=== PATIENT | male | born 1995 | race Caucasian/White ===

== ENCOUNTER → 2017-12-09 | Outpatient (CLI) | payer OTHER ==
[2017-12-09 09:31] LABS: BASOPHILS # (AUTO) 0.02 x10^3/uL (0-0.1); BASOPHILS % (AUTO) 1 % (0-1); EOSINOPHILS # (AUTO) 0.36 x10^3/uL (0-0.4); EOSINOPHILS % (AUTO) 7 % (1-7); LYMPHOCYTES # (AUTO) 1.74 x10^3/uL (1-3.4); LYMPHOCYTES % (AUTO) 34 % (22-44); MD NO; MEAN CORPUSCULAR HEMOGLOBIN 28.5 pg (27.5-34.5); MEAN CORPUSCULAR HGB CONC 33.4 g/dL (33.2-36.2); MEAN CORPUSCULAR VOLUME 85.3 fL (81-97); MEAN PLATELET VOLUME 8.1 fL (7.4-10.4); MONOCYTES % (AUTO) 10 % (2-9); NEUTROPHILS # (AUTO) 2.53 x10^3/uL (1.8-6.8); NEUTROPHILS % (AUTO) 49 % (42-75); PLATELET COUNT 230 x10^3/uL (130-400); RED BLOOD COUNT 5.39 x10^6/uL (4.38-5.82); RED CELL DISTRIBUTION WIDTH 12.8 % (9.4-14.8)
== END | disposition home or self-care (01) ==
LOC: LAB 08:41
PROVIDERS: ATTEND Registered Nurse
DX: J45.909 Unspecified asthma, uncomplicated (principal)
CPT/HCPCS: 36415; 82103; 82104; 82784; 82785; 85025; 86003; 86225; 86235

== ENCOUNTER → 2018-04-13 | Outpatient (CLI) | payer OTHER ==
[~2018-04-13] MED LIST: ALBU8.5H8 INH; FLUT100B IH
== END | disposition home or self-care (01) ==
LOC: STAR 11:32
PROVIDERS: ATTEND Internal Medicine
DX: Z02.9 Encounter for administrative examinations, unspecified (principal)

== ENCOUNTER 2018-05-12 08:00 | Day surgery (SDC) | payer OTHER ==
[~2018-05-12] VITALS: Ht 193 cm; Wt 93.2 kg
[2018-05-12] MEDS: ALBUTEROL SULFATE 2.5 MG/3 ML NPPB PRN ×2 (07:30→13:37)
[~2018-05-12 08:00] MED LIST changes: +LIDOCAINE 4% TOPICAL SOLUTION 50 ML ONE
[2018-05-12 08:38] VITALS: BP 122/77
[2018-05-12] MEDS ORDERED: prednisone PO (08:44)
[2018-05-12] MEDS ORDERED: advair INH (08:44)
[2018-05-12] MEDS ORDERED: SODIUM CHLORIDE 0.9% 1,000 ML IV SCH (09:00)
[2018-05-12] MEDS ORDERED: MIDAZOLAM 1 MG/ML, 5ML ONE ×2 (09:02)
[2018-05-12] MEDS ORDERED: FENTANYL PF 100 MCG/2ML ONE (09:02)
[2018-05-12] MEDS ORDERED: GLYCOPYRROLATE 0.4 MG/2 ML, 2ML ONE (09:03)
[2018-05-12] MEDS ORDERED: ALBUTEROL SULFATE 2.5 MG/3 ML ONE (09:28)
[2018-05-12] MEDS ORDERED: DIPHENHYDRAMINE 50 MG/ML, 1ML ONE (09:37)
== END 2018-05-12 14:35 | disposition home or self-care (01) ==
LOC: OUT 08:00
PROVIDERS: ATTEND Internal Medicine
DX: J45.50 Severe persistent asthma, uncomplicated (principal)
CPT/HCPCS: 31660; 94060; 94640; 99152; 99153; C1886; J1200; J2250; J3010; J7030; J7613

== ENCOUNTER 2018-06-02 06:12 | Day surgery (SDC) | payer OTHER ==
[~2018-06-02] VITALS: Ht 193 cm; Wt 94.5 kg
[~2018-06-02 06:12] MED LIST changes: -LIDOCAINE 4% TOPICAL SOLUTION 50 ML ONE; +advair INH; +prednisone PO
[2018-06-02 06:47] VITALS: BP 136/85
[2018-06-02] MEDS ORDERED: FLUT200B INH (07:12)
[2018-06-02] MEDS ORDERED: GLYCOPYRROLATE 0.4 MG/2 ML, 2ML ONE (07:18)
[2018-06-02] MEDS ORDERED: MIDAZOLAM 1 MG/ML, 5ML ONE ×2 (07:20→09:40)
[2018-06-02] MEDS ORDERED: FENTANYL PF 100 MCG/2ML ONE ×2 (07:20→09:40)
[2018-06-02] MEDS ORDERED: ALBUTEROL SULFATE 2.5 MG/3 ML ONE (07:24)
[2018-06-02] MEDS ORDERED: DIPHENHYDRAMINE 50 MG/ML, 1ML ONE (07:25)
[2018-06-02] MEDS ORDERED: ALBUTEROL SULFATE 2.5 MG/3 ML NPPB ONE ×3 (07:30→12:30)
[2018-06-02] MEDS ORDERED: ALBUTEROL SULFATE 2.5 MG/3 ML NPPB PRN (13:30)
[2018-06-02] MEDS ORDERED: LIDOCAINE 4% TOPICAL SOLUTION 50 ML ONE (14:13)
== END 2018-06-02 14:30 | disposition home or self-care (01) ==
LOC: OUT 06:12
PROVIDERS: ATTEND Internal Medicine
DX: J45.50 Severe persistent asthma, uncomplicated (principal)
CPT/HCPCS: 31661; 94060; 94640; 99152; 99153; C1886; J2250; J3010; J7613

== ENCOUNTER 2020-09-12 08:03 | Emergency (ER) | payer OTHER ==
[~2020-09-12] VITALS: Ht 193 cm; Wt 102.2 kg
[~2020-09-12 08:03] MED LIST changes: +FLUT200B INH
[2020-09-12] MEDS ORDERED: ALBUTEROL/IPRATROPIUM 2.5MG/0.5MG, 3 ML NPPB SCH (08:30)
[2020-09-12] MEDS ORDERED: methylPREDNISolone SOD SUCC 125 MG/2 ML ONE (08:34)
[2020-09-12] MEDS ORDERED: ALBUTEROL/IPRATROPIUM 2.5MG/0.5MG, 3 ML ONE (08:37)
[2020-09-12] MEDS ORDERED: methylPREDNISolone SOD SUCC 125 MG/2 ML IV ONE (09:00)
[2020-09-12 09:01] LABS: BASOPHILS % (AUTO) 1 % (0-1); EOSINOPHILS % (AUTO) 5 % (1-7); LYMPHOCYTES % (AUTO) 25 % (22-44); MD NO; MEAN CORPUSCULAR HEMOGLOBIN 28.6 pg (27.5-34.5); MEAN CORPUSCULAR HGB CONC 33.8 g/dL (33.2-36.2); MEAN PLATELET VOLUME 7.8 fL (7.4-10.4); MONOCYTES % (AUTO) 11 % (2-9); NEUTROPHILS % (AUTO) 58 % (42-75); PLATELET COUNT 231 x10^3/uL (130-400); RED CELL DISTRIBUTION WIDTH 13.4 % (9.4-14.8)
--- NOTE | 2020-09-12 09:01 | NUR ---
Report from [facility] and cxr at bedside
[2020-09-12 09:11] LABS: ALBUMIN 3.8 g/dL (3.4-5.0); ANION GAP 9 mmol/L (5-15); CALCIUM 8.8 mg/dL (8.5-10.1); CHLORIDE 109 mmol/L (98-107); CREATININE 0.83 mg/dL (0.7-1.3)
[2020-09-12] MEDS ORDERED: SODIUM CHLORIDE FLUSH 10ML SYR IVF ONE (09:30)
[2020-09-12] MEDS ORDERED: MAGNESIUM SULFATE PMX 2GM/50ML 50 ML IV ONE (09:30)
[2020-09-12] MEDS ORDERED: MAGNESIUM SULFATE PMX 2GM/50ML 0 ML ONE (09:41)
[2020-09-12] MEDS ORDERED: OXYMETAZOLINE NASAL SPRAY 0.05%,30ML ONE (09:48)
--- NOTE | 2020-09-12 09:57 | NUR ---
WITH REASSESMENT (POST NEBULIZER) PATIENT WOB MINIMAL, BREATH SOUNDS AUDIBLE TO ALL CRAFT WITH MINIMAL WHEEZING PROVIDER TO BEDSIDE. TO DEFER MAGNESIUM ADMIN AND ADMIN AFRIN SPRAY INSTEAD
[2020-09-12 09:59] VITALS: BP 138/79
[2020-09-12] MEDS ORDERED: OXYMETAZOLINE NASAL SPRAY 0.05%,30ML NAS ONE (10:00)
--- NOTE | 2020-09-12 10:23 | NUR ---
RESP PANEL N/P SWAB OBTAINED PER GUIDELINES WALKED TO LAB PATIENT THEN DISCHARGED IN CARE OF MOTHER
== END 2020-09-12 10:25 | disposition home or self-care (01) ==
LOC: ED 10:15
DX: J45.41 Moderate persistent asthma with (acute) exacerbation (principal); Z20.822 Contact with and (suspected) exposure to COVID-19; R51.9 Headache, unspecified
CPT/HCPCS: 36415; 71045; 80048; 82040; 85025; 87486; 87581; 87633; 87798; 94640; 96374; 99284; J2930; U0003